=== PATIENT | male | born 1945 | race Caucasian/White ===

== ENCOUNTER 2020-05-22 23:20 | Emergency (ER) | payer BC ==
[~2020-05-22] VITALS: Ht 175.3 cm; Wt 74.8 kg
[2020-05-22 23:21] VITALS: Ht 175.3 cm; Wt 74.8 kg
--- NOTE | 2020-05-23 00:19 | NUR ---
PLACED PT OFF BIPAP AND ON 3L NASAL CANNULA PER DR. SMITH. WILL CONT TO MONITOR
[2020-05-23 00:20] LABS: BASOPHIL % 0.3 % (0-2); PLATELET COUNT 180 x10^3mcL (130-400); RED CELL DISTRIBUTION WIDTH 13.8 % (11.5-14.5)
[2020-05-23 00:27] LABS: CALCIUM 8.4 mg/dL (8.5-10.1); CARBON DIOXIDE 27.7 mmol/L (21-32); CHLORIDE SERUM 102 mmol/L (98-107); GLUCOSE SERUM 143 mg/dL (74-106); POTASSIUM SERUM 4.1 mmol/L (3.5-5.1); SODIUM SERUM 137 mmol/L (136-145)
[2020-05-23 00:40] LABS: ALKALINE PHOSPHATASE 108 U/L (46-116); ALT/SGPT 98 U/L (16-63); AST/SGOT 61 U/L (15-37); BILIRUBIN TOTAL 0.8 mg/dL (0.20-1.00); TOTAL PROTEIN, SERUM 6.2 g/dL (6.4-8.2)
[2020-05-23 00:41] LABS: ALBUMIN 2.8 g/dL (3.4-5.0)
[2020-05-23 01:41] VITALS: BP 107/51
== END 2020-05-23 01:42 | disposition short-term general hospital (02) ==
LOC: ED 23:20
PROVIDERS: Emergency Medicine
DX: I21.3 ST elevation (STEMI) myocardial infarction of unspecified site (principal); J44.1 Chronic obstructive pulmonary disease with (acute) exacerbation; J18.9 Pneumonia, unspecified organism
CPT/HCPCS: 36600; 83880; J0456; J0696; J1940; J7030; J7050; J7060; Q0092